=== PATIENT | male | born 1970 | race Caucasian/White ===

== ENCOUNTER 2024-12-14 13:23 | Emergency (ER) | payer MEDICAID, OTHER ==
[~2024-12-14] VITALS: Ht 180.3 cm; Wt 95.0 kg
[~2024-12-14 13:23] MED LIST: EFAV1TAB2 PO
[2024-12-14 13:41] VITALS: TEMP 98.3
[2024-12-14 13:44] LABS: PLATELET COUNT (AUTO) 334 K/uL (150-450); RED BLOOD CELL COUNT(AUTO) 5.58 MIL/uL (4.50-5.90); RED CELL DISTRIBUTION WIDTH 14.6 % (11.5-14.5); WHITE BLOOD COUNT (AUTO) 15.3 K/uL (4.5-11.0)
[2024-12-14 13:54] LABS: CALCIUM, TOTAL 8.8 mg/dL (8.8-10.5); CREATININE 1.37 mg/dL (0.60-1.30); GLOMERULAR FILTR. RATE CALC 55.0 mL/min (>60); GLUCOSE,RANDOM 85.0 mg/dL (70-110); SODIUM SERUM 136.0 mmol/L (136-145); UREA NITROGEN, BLOOD 18.0 mg/dL (7-18)
[2024-12-14 14:26] LABS: TROPONIN I-HIGH SENSITIVITY 17 ng/L (<76)
[2024-12-14 15:15] LABS: PH,URINE DRUG SCREEN 5.5 (5.0-8.0)
[2024-12-14 15:44] VITALS: BP 149/97; PULSE 87; RESP 20; O2SAT 98
[2024-12-14 16:38] LABS: ALCOHOL, URINE DRUG SCREEN NEGATIVE (NEGATIVE); AMPHET/METH SCREEN,URINE NEGATIVE (NEGATIVE); BARBITURATE SCREEN, URINE NEGATIVE (NEGATIVE); CANNABINOID SCREEN,URINE NEGATIVE (NEGATIVE); COCAINE SCREEN,URINE POSITIVE (NEGATIVE); METHADONE SCREEN, URINE NEGATIVE (NEGATIVE)
== END 2024-12-14 16:04 | disposition home or self-care (01) ==
LOC: EMS 13:23
DX: F14.10 Cocaine abuse, uncomplicated (principal); F41.9 Anxiety disorder, unspecified; R61 Generalized hyperhidrosis; F15.90 Other stimulant use, unspecified, uncomplicated; Z90.49 Acquired absence of other specified parts of digestive tract; Z79.624 Long term (current) use of inhibitors of nucleotide synthesis; Z88.0 Allergy status to penicillin
CPT/HCPCS: 80048; 80307; 84484; 85025; 93005; 99284

== ENCOUNTER 2024-12-14 18:37 | Emergency (ER) | payer SELFPAY ==
[~2024-12-14] VITALS: Ht 172.7 cm; Wt 81.8 kg
[2024-12-14 18:44] VITALS: TEMP 98.8
[2024-12-14 21:24] VITALS: BP 105/60; PULSE 74; RESP 16; O2SAT 97
== END 2024-12-14 23:09 | disposition home or self-care (01) ==
LOC: EMS 19:51
DX: F10.129 Alcohol abuse with intoxication, unspecified (principal); F14.90 Cocaine use, unspecified, uncomplicated; F15.90 Other stimulant use, unspecified, uncomplicated; Z91.83 Wandering in diseases classified elsewhere; Z90.49 Acquired absence of other specified parts of digestive tract; Z88.0 Allergy status to penicillin; Z79.624 Long term (current) use of inhibitors of nucleotide synthesis; Y90.9 Presence of alcohol in blood, level not specified
CPT/HCPCS: 99283; Z7502

== ENCOUNTER 2025-04-07 06:46 | Inpatient (IN) | payer OTHER ==
[~2025-04-07] VITALS: Ht 182.9 cm; Wt 79.5 kg
[2025-04-07] MEDS: PERTUSS(ACELL),DIPH,TET/PF 0.5 ML SYRINGE [ADULT] IM. ONE (07:19)
[2025-04-07] MEDS: BACITRACIN 0.9 GM PACKET OINTMENT TP ONE (07:19)
[2025-04-07 08:25] LABS: COVID AG,FIA SOURCE NASAL SWAB
[2025-04-07 08:34] LABS: CALCIUM, TOTAL 9.7 mg/dL (8.8-10.5); CREATININE 2.08 mg/dL (0.60-1.30); GLOMERULAR FILTR. RATE CALC 34.0 mL/min (>60); GLUCOSE,RANDOM 66.0 mg/dL (70-110); SODIUM SERUM 143.0 mmol/L (136-145); UREA NITROGEN, BLOOD 32.0 mg/dL (7-18)
[2025-04-07 08:35] LABS: PLATELET COUNT (AUTO) 340 K/uL (150-450); RED BLOOD CELL COUNT(AUTO) 6.01 MIL/uL (4.50-5.90); RED CELL DISTRIBUTION WIDTH 15.4 % (11.5-14.5); WHITE BLOOD COUNT (AUTO) 20.2 K/uL (4.5-11.0)
[2025-04-07 08:57] LABS: SARS-COV2 (COVID) ANTIGEN,FIA Negative (Negative)
[2025-04-07 09:02] LABS: BAND NEUTROPHILS % (MANUAL) 2 % (0-5); LYMPHOCYTES % (MANUAL) 2 % (22-44); MONOCYTES % (MANUAL) 7 % (2-9); SEGMENTED NEUTROPHILS % 89 % (40-70)
[2025-04-07 09:03] LABS: RBC MORPHOLOGY COMMENT ABNORMAL R
[2025-04-07] MEDS: SODIUM CHLORIDE 0.9% 1,000 ML IV ONE (09:28)
[2025-04-07] MEDS ORDERED: ZOLPIDEM TARTRATE 5 MG TABLET PO PRN (10:15)
[2025-04-07] MEDS ORDERED: ONDANSETRON HCL 4 MG/2 ML VIAL IVP PRN (10:15)
[2025-04-07] MEDS ORDERED: ACETAMINOPHEN 325 MG TABLET PO PRN (10:15)
[2025-04-07] MEDS: SODIUM CHLORIDE 0.9% 1,000 ML IV SCH (10:32)
[2025-04-07] MEDS: ACETAMINOPHEN 500 MG TABLET PO ONE (10:38)
[2025-04-07 11:20] VITALS: BP 138/82; PULSE 82; RESP 18; TEMP 98.8; O2SAT 97
[2025-04-07 16:00] VITALS: BP 130/79; PULSE 74; RESP 16; TEMP 97.7; O2SAT 97
[2025-04-07] MEDS ORDERED: DOCUSATE SODIUM 100 MG CAPSULE PO SCH (21:00)
[2025-04-08 05:07] LABS: HEPATITIS C AB (EIA) Non Reactive (Non Reactive)
[2025-04-08] MEDS ORDERED: FAMOTIDINE 20 MG TABLET PO SCH (09:00)
== END 2025-04-07 17:55 | disposition left against medical advice (07) | DRG 92 ==
LOC: EMS 06:46 → EDH 10:13 → 6S 11:30
PROVIDERS: ADMIT Internal Medicine; ATTEND Internal Medicine
DX: G92.9 Unspecified toxic encephalopathy (principal); M62.82 Rhabdomyolysis; R65.10 Systemic inflammatory response syndrome (SIRS) of non-infectious origin without acute organ dysfunction; N17.9 Acute kidney failure, unspecified; F15.959 Other stimulant use, unspecified with stimulant-induced psychotic disorder, unspecified; D72.829 Elevated white blood cell count, unspecified; F14.90 Cocaine use, unspecified, uncomplicated; Z88.0 Allergy status to penicillin; Z53.29 Procedure and treatment not carried out because of patient's decision for other reasons
CPT/HCPCS: 80048; 82550; 85025; 86803; 87340; 90715; 96360; 99285; G0480; 36415-L1; 36415-TC